=== PATIENT | female | born 1985 | race Asian ===

== ENCOUNTER 2022-07-24 16:43 | Emergency (ER) | payer OTHER, SELFPAY ==
[2022-07-24 16:55] VITALS: BP 110/71; PULSE 96; RESP 16; TEMP 36.6; O2SAT 100
--- NOTE | 2022-07-24 16:57 | ED.URI ---
HPI - URI/Sore Throat General Chief Complaint: Upper Respiratory Infection Stated Complaint: SORE THROAT Time Seen by Provider: 07/24/22 16:57 Source: patient Mode of arrival: ambulatory Limitations: no limitations History of Present Illness HPI Narrative: 36-year-old female presents with complaint of scratchy throat, headache, upset stomach for the past 3 days. Patient reports exposure to strep throat by her son and states now her throat is hurting. Afebrile. Patient also concerned that she may be . States she is 1 week late on her period. States there was a faint positive lying on home test last night. States she is going to taking other home test in a couple days, does not want a test at [facility]. All systems reviewed and negative except as noted above. Related Data Allergies Allergy/AdvReac Type Severity Reaction Status Date / Time No Known Allergies Allergy Verified 07/24/22 16:50 Review of Systems Review of Systems: CONSTITUTIONAL: Denies fever, chills, or sweats. EYES: Denies visual changes, redness, or discharge. ENT: Denies rhinorrhea, congestion. Reports sore throat. Denies otalgia. CARDIOVASCULAR: Denies chest pain, palpitations, or edema. RESPIRATORY: Denies cough or dyspnea. GASTROINTESTINAL: Denies abdominal pain. Reports nausea. Denies vomiting, or diarrhea. GENITOURINARY: Denies dysuria or hematuria. SKIN: Denies rash or itching. MUSCULOSKELETAL: Denies back pain, joint pain, or myalgia. NEUROLOGIC: Denies headache, numbness, or weakness. PSYCHIATRIC: Denies anxiety or depression. All other systems reviewed are negative, except as documented in HPI. PMFSH Comments At time of signature, agree with nursing past medical, surgical, social and family history. There is no relevant family history pertinent to the presenting complaint. Exam Narrative: GENERAL: This is a well-nourished, well-developed patient, in no apparent distress. HEAD: normocephalic, atraumatic. EYES: PERRL. Sclera clear/white. Vision is grossly intact. EARS: External ears normal, auditory canals clear and without drainage, TMs normal without perforation. Hearing grossly intact. NOSE: External nose normal with no obvious nasal discharge, nares without redness, no rhinorrhea. THROAT: Mucous membranes moist, mild erythema to posterior pharynx. NECK: Neck supple, non-tender without lymphadenopathy, masses or thyromegaly. CARDIOVASCULAR: Regular rate and rhythm without murmurs, gallops, or rubs. RESPIRATORY: Clear to auscultation. Breath sounds equal bilaterally. No wheezes, rales, or rhonchi. GASTROINTESTINAL: Abdomen soft, non-tender, nondistended. Bowel sounds are active. No hepato-splenomegaly, or palpable masses. No guarding. SKIN: warm, Dry, intact with no suspicious lesions or rash, good texture and turgor. NEURO: awake, alert, and oriented to person, place and time. There were no obvious focal neurologic abnormalities. EXTREMITIES: No joint tenderness, effusion, or edema noted. Course Course Level of Care: Express Care Visit Vital Signs Vital signs: Vital Signs Temperature 36.6 C 07/24/22 16:55 Pulse Rate 96 07/24/22 16:55 Respiratory Rate 16 07/24/22 16:55 Blood Pressure 110/71 07/24/22 16:55 Pulse Oximetry 100 07/24/22 16:55 Temperature 36.6 C 07/24/22 16:55 Pulse Rate 96 07/24/22 16:55 Respiratory Rate 16 07/24/22 16:55 Blood Pressure 110/71 07/24/22 16:55 Pulse Oximetry 100 07/24/22 16:55 Reviewed MDM - URI/Sore Throat MDM Narrative Medical decision making narrative: Patient is aware of diagnosis, understands and agrees to treatment plan. Anticipatory guidance given. Patient agrees to follow-up as directed and is aware of reasons to seek care at the emergency department. Portions of this record may have been created with voice recognition software Negative rapid strep test. Will treat patient for strep throat due
== END 2022-07-24 17:17 | disposition home or self-care (01) ==
PROVIDERS: Emergency Provider Nurse Practitioner Family
DX: J02.9 Acute pharyngitis, unspecified (principal); Z20.818 Contact with and (suspected) exposure to other bacterial communicable diseases
CPT/HCPCS: 87081; 87880; 99213; G0463

== ENCOUNTER 2022-09-12 18:15 | Emergency (ER) | payer OTHER, SELFPAY ==
[2022-09-12 18:30] VITALS: BP 115/73; PULSE 94; RESP 16; TEMP 36.7; O2SAT 100
--- NOTE | 2022-09-12 18:31 | ED.URI ---
HPI - URI/Sore Throat General Chief Complaint: Upper Respiratory Infection Stated Complaint: SORE THROAT/COUGH Time Seen by Provider: 09/12/22 18:31 Source: patient, RN notes reviewed and old records reviewed Mode of arrival: ambulatory Limitations: no limitations History of Present Illness HPI Narrative: 37 year old female who presents to [facility] care with complaints of sore throat and cough for the past 3 days. Patient is also about 10-11 weeks . Patient reports that she has not had any fevers, chills, or sweats. Patient reports that she has not been sleeping well due to cough which is frequent. Patient states that she also has a lot of acid reflux which she thinks could of also made her throat sore. Patient has not taken any OTC medications for her symptoms. Patient works in a rehab facility setting. MD elicited complaint: cough and sore throat Onset (ago): day(s) (3) Pain scale (0-10): 6 Description of mucous: clear Able to tolerate fluids by mouth: Yes Exacerbating factors: other (cough) Treatments prior to arrival: other (salt water gargles) Related Data Home Medications Medication Instructions Recorded Confirmed vit#24-iron amino acid 1 tablet PO DAILY 09/12/22 09/12/22 chelat-folic acid 30 mg-975 mcg tablet Allergies Allergy/AdvReac Type Severity Reaction Status Date / Time No Known Allergies Allergy Verified 09/12/22 18:27 Review of Systems Review of Systems: CONSTITUTIONAL: Denies malaise, chills, sweats, or fever. EYES: Denies visual changes, redness, or discharge. ENT: Reports rhinorrhea, congestion,no sinus pain, no otalgia, positive for sore throat. CARDIOVASCULAR: Denies chest pain, palpitations, or edema. RESPIRATORY: Reports cough.? Denies dyspnea. GASTROINTESTINAL: Denies abdominal pain, nausea, vomiting, diarrhea SKIN: Denies rash or itching. MUSCULOSKELETAL: Denies myalgia. NEUROLOGIC: Denies headache. All systems reviewed & are unremarkable except as noted in HPI and below PMFSH Social History Social History (Updated 09/12/22 @ 19:03 by Sonya Arrington NP) Smoking status: Never smoker Alcohol intake: unknown Substance use: never Substance use type: does not use Living arrangements: with family Gender identity (if verbalized by the patient): Female Comments At time of signature, agree with nursing past medical, surgical, social and family history. There is no relevant family history pertinent to the presenting complaint Exam Narrative: GENERAL: Well-appearing, well-nourished, and in no acute distress. HEAD: Normocephalic EYES: PERRLA, conjunctivae clear ENT: Nares clear, turbinates edematous and erythematous, clear discharge. Mucous membranes moist. TM pearly silverio with dull light reflex bilaterally; no tragal tenderness. Oropharynx erythematous without lesions. Tonsils not enlarged and without exudate, no drooling, no hoarseness, no trismus, uvula midline. NECK: Supple. No lymphadenopathy CHEST: Clear to auscultation, breath sounds equal. No wheezing, rhonchi, rales, or stridor. No respiratory distress, speaks in full sentences.dry cough, SAO2 100% on room air HEART: Regular rate and rhythm. No murmur heard. SKIN: Warm, dry, no rash. NEURO: Alert and oriented x3. PSYCH: Normal mood and affect Course Course Emergency Course: Patient is aware of diagnosis, understands and agrees to treatment plan.? Anticipatory guidance given.? Patient agrees to follow-up as directed and is aware of reasons to seek care at the emergency department. Portions of this record may have been created with voice recognition software Level of Care: Express Care Visit Vital Signs Vital signs: Vital Signs Temperature 36.7 C 09/12/22 18:30 Pulse Rate 94 09/12/22 18:30 Respiratory Rate 16 09/12/22 18:30 Blood Pressure 115/73 09/12/22 18:30 Pulse Oximetry 100 09/12/22 18:30 Temperature 36.7 C 09/12/22 18:3
== END 2022-09-12 19:12 | disposition home or self-care (01) ==
PROVIDERS: Emergency Provider Registered Nurse
DX: O99.511 Diseases of the respiratory system complicating pregnancy, first trimester (principal); Z3A.00 Weeks of gestation of pregnancy not specified; J06.9 Acute upper respiratory infection, unspecified; J02.9 Acute pharyngitis, unspecified; Z20.822 Contact with and (suspected) exposure to COVID-19
CPT/HCPCS: 87081; 87426; 87880; 99213; C9803; G0463

== ENCOUNTER 2022-09-25 09:56 | Emergency (ER) | payer OTHER, SELFPAY ==
--- NOTE | ~2022-09-25 | US_ITS ---
Pelvic ultrasound. Clinical History: Second trimester , miscarriage Technique: Realtime transabdominal and transvaginal scanning of the pelvis was performed. Color flow Doppler and Doppler spectral analysis were performed. Findings: The uterus is anteverted, and contains an intrauterine gestation.. [place]-rump length of 7.5 cm corresponds to an estimated gestational age of 13 weeks 4 days. heart rate is 163 bpm. Cerv ix closed, measuring 3.7 m in length. Placenta located towards the fundus. Possible very small subchr onic hemorrhage. Neither ovary seen. No adnexal mass seen. There is no evidence of free fluid in the cul de sac. Impression: Live intrauterine gestation with estimated gestational age of 13 weeks 4 days. heart rate is 16 3 bpm. Possible very small subchorionic hemorrhage. Reviewed, dictated and finalized at [facility]. Impression: Live intrauterine gestation with estimated gestational age of 13 weeks 4 days. heart rate is 163 bpm. Possible very small subchorionic hemorrhage.
[2022-09-25 10:02] VITALS: BP 118/68; PULSE 87; RESP 20; TEMP 36.6; O2SAT 100
--- NOTE | 2022-09-25 10:10 | ED.FEMALEGU ---
HPI - Female Genitourinary General Chief complaint: Vaginal Bleeding Stated complaint: 13 weeks , bleeding Time Seen by Provider: 09/25/22 10:03 Source: patient Mode of arrival: ambulatory Limitations: no limitations History of Present Illness HPI Narrative: Patient is 3, para 1, abortions 0, currently 13 weeks developed vaginal bleed with blood clots last night, denies any sexual activity at that time. Patient reports hitting the right side of her abdomen on the edge of a table 1 week ago. Did not go to hospital at that time. She denies any fever, chills, nausea, vomiting, abdominal pain. Patient is healthy otherwise, drove herself to the emergency room. Related Data Home Medications Medication Instructions Recorded Confirmed vit#24-iron amino acid 1 tablet PO DAILY 09/12/22 09/12/22 chelat-folic acid 30 mg-975 mcg tablet Allergies Allergy/AdvReac Type Severity Reaction Status Date / Time No Known Allergies Allergy Verified 09/25/22 10:05 Review of Systems Review of Systems: All systems reviewed & are unremarkable except as noted in HPI and below PMFSH Social History Social History Smoking status: Never smoker Alcohol intake: unknown Substance use: never Substance use type: does not use Living arrangements: with family Gender identity (if verbalized by the patient): Female Exam Narrative: General appearance: Well-developed, well-nourished Skin: Normal color Head: Normocephalic, nontraumatic Eyes: Clear conjunctiva ENT: Oropharynx normal, ears normal, nose normal Neck: Supple, nontender Chest and respiratory: Airway patent, no respiratory distress, no accessory muscle use Heart: Regular rate/rhythm Abdomen: Soft, nontender, no organomegaly, quiet bowel sounds Vascular: Normal peripheral pulses, normal capillary refill. Musculoskeletal: Normal range of motion, nontender back Neurologic: Alert and oriented ?3, [employer] is normal as tested, no gross motor deficit : Speculum Exam - Vagina: normal appearance of the vagina Speculum Exam - Cervix: Cervical os closed Bimanual Exam- Adnexa, other: No adnexal tenderness Other: Risks of vaginal bleed, at the cervix, currently no active bleeding Course Reevaluation(s) Reevaluation #1: No active bleeding, feeling okay since arrival to the emergency room. Date: 09/25/22 Time: 13:26 Vital Signs Vital signs: Vital Signs Temperature 36.6 C 09/25/22 10:02 Pulse Rate 87 09/25/22 10:02 Respiratory Rate 20 09/25/22 10:02 Blood Pressure 118/68 09/25/22 10:02 Pulse Oximetry 100 09/25/22 10:02 Oxygen Delivery Room Air 09/25/22 10:02 Temperature 36.6 C 09/25/22 10:02 Pulse Rate 87 09/25/22 10:02 Respiratory Rate 20 09/25/22 10:02 Blood Pressure 118/68 09/25/22 10:02 Pulse Oximetry 100 09/25/22 10:02 Oxygen Delivery Room Air 09/25/22 10:02 MDM - Female Genitourinary MDM Narrative Medical decision making narrative: Patient is 13 weeks , presents with vaginal bleed started last night, patient reported accidentally bumped the edge of a table by the right side of her abdomen 1 week ago. Denied any recent sexual activity. Physical examination showed trace of blood around the cervix, blood work-up today showed leukocytosis consistent with , beta-hCG one 02113.00, urinalysis showed infection, patient on Keflex currently for UTI, pelvic ultrasound showed live intrauterine gestation 13 weeks and 4 days heart rate is 163. Patient is comfortable, Dr. Janet Salazar was notified. the pt was discharged to home.the pt,s con
[2022-09-25 10:23] LABS: Basophils Percent Auto 0.2 % (0.2-1.2); Eosinophils Absolute Auto 0.2 K/mm3 (0-0.3); Eosinophils Percent Auto 1.1 % (0-4.4); Hematocrit 35.8 % (37.0-47.0); Hemoglobin 11.8 g/dL (12.0-15.0); Immature Granulocyte Absolute 0.06 K/mm3 (0.00-0.031); Immature Granulocyte Percent A 0.4 % (0-0.5); Lymphocytes Absolute Auto 2.72 K/mm3 (0.9-3.2); Lymphocytes Percent Auto 18.2 % (18.3-44.2); Mean Corpuscular Hemoglobin 27.7 pg (26-34); Mean Platelet Volume 8.6 fl (7.4-10.4); Monocytes Absolute Auto 0.9 K/mm3 (0.1-0.6); Monocytes Percent Auto 5.9 % (2.6-8.5); Neutrophils Absolute Auto 11.1 K/mm3 (1.3-6.7); Neutrophils Percent Auto 74.2 % (45.5-73.1); Platelet Count Result 390 k/mm3 (150-375); Red Blood Count 4.26 M/mm3 (4.2-5.4)
[2022-09-25] MEDS: SODIUM CHLORIDE 0.9% IV 1,000 ML 999 ML IV CONT (10:34)
[2022-09-25 11:21] LABS: Appearance Urine Clear (Clear); Bacteria Urine None Seen /hpf; Bilirubin Urine Negative (Negative); Blood Urine 2+ (Negative); Color Urine Yellow (Yellow); Glucose Urine UA Negative (Negative); Ketones Urine Negative (Negative); Leukocyte Esterase Ur 3+ LEU/UL (Negative); Nitrate Urine Negative (Negative); Non Pathogenic Casts 0-2; Protein Urine Negative (Negative); RBC Urine 0-2 /hpf (0-2); Specific Grav Ur 1.006 (1.001-1.035); Squamous Epithelial Cell Urine None seen /hpf (Few); Urobilinogen Urine 0.2 mg/dL (<2.0); WBC Urine 21-50 /hpf; pH Urine 6.5 (5.0-9.0)
[2022-09-25 11:23] LABS: Add Urine Microscopic? YES
--- NOTE | 2022-09-25 11:31 | PC.NURSE ---
report received from Millie SULLIVAN
== END 2022-09-25 15:03 | disposition home or self-care (01) ==
PROVIDERS: Emergency Provider Emergency Medicine
DX: O20.0 Threatened abortion (principal); O23.41 Unspecified infection of urinary tract in pregnancy, first trimester; N39.0 Urinary tract infection, site not specified; Z3A.13 13 weeks gestation of pregnancy
CPT/HCPCS: 36415; 76801; 81001; 81025; 84702; 85025; 85461; 86850; 86900; 86901; 87086; 87147; 87181; 87186; 96360; 99284; J7030

== ENCOUNTER 2023-03-04 08:20 | Inpatient (IN) | payer BC, SELFPAY ==
[2023-03-04] VITALS (48 sets, daily range): BP systolic 90–123; BP diastolic 45–98; PULSE 81–115; RESP 12–23; TEMP 36.3–37.1; O2SAT 98–100; BMI 31.1
[2023-03-04 08:52] LABS: Basophils Percent Auto 0.1 % (0.2-1.2); Eosinophils Absolute Auto 0.1 K/mm3 (0-0.3); Eosinophils Percent Auto 0.8 % (0-4.4); Hematocrit 33.2 % (37.0-47.0); Hemoglobin 10.9 g/dL (12.0-15.0); Immature Granulocyte Absolute 0.15 K/mm3 (0.00-0.031); Immature Granulocyte Percent A 1.3 % (0-0.5); Lymphocytes Absolute Auto 1.51 K/mm3 (0.9-3.2); Lymphocytes Percent Auto 12.8 % (18.3-44.2); Mean Corpuscular HGB Conc 32.8 g/dl (32-36); Mean Corpuscular Hemoglobin 28.2 pg (26-34); Mean Corpuscular Volume 85.8 fl (80-100); Mean Platelet Volume 8.7 fl (7.4-10.4); Monocytes Absolute Auto 0.6 K/mm3 (0.1-0.6); Monocytes Percent Auto 5.2 % (2.6-8.5); Neutrophils Absolute Auto 9.4 K/mm3 (1.3-6.7); Neutrophils Percent Auto 79.8 % (45.5-73.1); Platelet Count Result 277 k/mm3 (150-375); Red Blood Count 3.87 M/mm3 (4.2-5.4); Red Cell Distribution Width 13.4 % (11.5-14.5); White Blood Count 11.8 K/mm3 (4.5-10.0)
--- NOTE | 2023-03-04 09:05 | LDADM ---
This patient, Trevon Porter, was admitted to Labor/Delivery/Recovery 119 on 03/04/23 at 08:20. Plans for labor, pain management and were discussed with patient. Patient/family oriented to hospital policies and general routines including ID bracelet, bed and alarms, visiting hours, pain management, procedures, bathroom and other care routines, personal items, smoking policy, room service/diet and guest tray routines, security routines, and visiting hours. Patient/Family are encouraged to report perceived risks to care and to ask questions if they do not understand what they are told or what they should do. See OBIX for further documentation.
[2023-03-04] MEDS: LACTATED RINGERS 1,000 ML 125 ML IV CONT ×2 (09:14→10:29)
--- NOTE | 2023-03-04 09:38 | PM.IMHP ---
H&P: HPI History of Present Illness Date/Time: 03/04/23 09:38 Chief Complaint: Ruptured membranes Narrative: 37-year-old 2 para 1 with previous section and last menstrual period 06/20/2022 given EDC of 04/03/2023 presenting at 35 and half weeks gestation with spontaneous rupture membranes. Her has been uncomplicated she had abnormal 1hour diabetic test with 4 4 normal GTT she is positive for ruptured membranes today [facility] Social History Social History Smoking status: Never smoker Alcohol intake: unknown Substance use: never Substance use type: does not use Lack of Transportation: No Lack of Food: Never True Current Housing: I Have Housing Concerned About Future Housing: No Difficulty Paying Gas/Electric Bills: No Difficulty Paying for Meds: No Currently Unemployed: No Education: Master's Degree or Higher Difficulty w/ Childcare or Family Care: No Living arrangements: with family Gender identity (if verbalized by the patient): Female Meds Home Medications and Allergies Home Medications Medication Instructions Recorded Confirmed Type vit#24-iron amino acid 1 tablet PO DAILY 09/12/22 03/04/23 History chelat-folic acid 30 mg-975 mcg tablet Allergies Allergy/AdvReac Type Severity Reaction Status Date / Time No Known Allergies Allergy Verified 09/25/22 10:05 Vital Signs Vital Signs - 24 hr 03/04/23 08:16 03/04/23 08:31 03/04/23 09:01 Pulse Rate 103 H 99 98 Blood Pressure 111/70 104/62 106/65 Oxygen Delivery 03/04/23 09:16 03/04/23 09:31 03/04/23 09:02 Pulse Rate 103 H 97 Blood Pressure 114/72 90/49 L Oxygen Delivery Room Air Exam Const: General: cooperative, healthy appearing and comfortable Nutritional Appearance: average body habitus Orientation/consciousness: oriented to person, oriented to place and oriented to time HENMT: Head: normal to inspection Resp: Effort & Inspection: normal respiratory effort Cardio: Rate: regular rate Rhythm: regular rhythm Heart sounds: S1 normal heart sound present and S2 normal heart sound present GI: Inspection: normal to inspection ( gravid soft uterus) : External Female Exam: normal external appearance Speculum Exam - Vagina: normal appearance of the vagina Speculum Exam - Cervix: normal appearance of the cervix and Other cervical findings present ( positive rupture of membranes. FHTs reassuring with no contractions) H&P: Results Labs Labs: Short CBC 03/04/23 Range/Units 08:37 WBC 11.8 H (4.5-10.0) K/mm3 Hgb 10.9 L (12.0-15.0) g/dL Hct 33.2 L (37.0-47.0) % Plt Count 277 (150-375) k/mm3 Assessment and Plan Assessment and plan (1) Premature rupture of membranes (PROM) at term with onset of labor after 24 hours, antepartum: Code(s): O42.12 - Full-term premature rupture of membranes, onset of labor more than 24 hours following rupture Status: Acute (2) Previous section: Code(s): Z98.891 - History of uterine scar from previous surgery Status: Acute Plan proceed with repeat section
--- NOTE | 2023-03-04 09:41 | WPDHPUPDATE1 ---
History and Physical Update Update Date/Time: 03/04/23 09:41 History and Physical has been reviewed, including an updated exam of the patient. There are NO changes in the patient's condition. Risks, benefits, and alternatives have been discussed and questions answered. Patient agrees to proceed with procedure.
--- NOTE | 2023-03-04 10:39 | WPDANESEPPF ---
Anes - Initial Pre Proc Eval Procedure: Operation Date: 03/04/23 11:00 Proposed Procedures p Section - Kendall Salazar MD Date/Time: 03/04/23 10:39 Surgeon: Kendall Salazar MD Pre Op Diagnosis: leaking Patient Data Age: 37 Gender: F Height: 1.5 m Weight: 70 kg Last Vital Signs Pulse 93 03/04/23 10:01 BP 94/51 L 03/04/23 10:01 O2 Del Method Room Air 03/04/23 09:02 Allergies Allergy/AdvReac Type Severity Reaction Status Date / Time No Known Allergies Allergy Verified 09/25/22 10:05 Home Medications Medication Instructions Recorded Confirmed Type vit#24-iron amino acid 1 tablet PO DAILY 09/12/22 03/04/23 History chelat-folic acid 30 mg-975 mcg tablet hydrocodone 5 mg-acetaminophen 325 1 tablet PO Q4H PRN pain #30 tabs 03/04/23 Rx mg tablet Laboratory Tests 03/04/23 08:37 WBC 11.8 H K/mm3 (4.5-10.0) RBC 3.87 L M/mm3 (4.2-5.4) Hgb 10.9 L g/dL (12.0-15.0) Hct 33.2 L % (37.0-47.0) MCV 85.8 fl (80-100) MCH 28.2 pg (26-34) MCHC 32.8 g/dl (32-36) RDW 13.4 % (11.5-14.5) Plt Count 277 k/mm3 (150-375) MPV 8.7 fl (7.4-10.4) Immature Gran % (Auto) 1.3 H % (0-0.5) Neut % (Auto) 79.8 H % (45.5-73.1) Lymph % (Auto) 12.8 L % (18.3-44.2) [place] % (Auto) 5.2 % (2.6-8.5) Eos % (Auto) 0.8 % (0-4.4) Baso % (Auto) 0.1 L % (0.2-1.2) Lymph # (Auto) 1.51 K/mm3 (0.9-3.2) [place] # (Auto) 0.6 K/mm3 (0.1-0.6) Eos # (Auto) 0.1 K/mm3 (0-0.3) Baso # (Auto) 0.0 K/mm3 (0.0-0.1) Abs Immat Gran (auto) 0.15 H K/mm3 (0.00-0.031) Absolute Neuts (auto) 9.4 H K/mm3 (1.3-6.7) Absolute Nucleated RBC 0.0 K/mm3 (0.0-0.012) Nucleated RBC % 0.0 % (0.0-0.2) RPR Pending Blood Type B Positive Antibody Screen Negative Patient hx anesthesia problems: none Family hx anesthesia problems: none Results Review: All pre-operative results and documents have been reviewed as part of the pre-operative evaluation. [facility] Social History Social History Smoking status: Never smoker Alcohol intake: unknown Substance use: never Substance use type: does not use Lack of Transportation: No Lack of Food: Never True Current Housing: I Have Housing Concerned About Future Housing: No Difficulty Paying Gas/Electric Bills: No Difficulty Paying for Meds: No Currently Unemployed: No Education: Master's Degree or Higher Difficulty w/ Childcare or Family Care: No Living arrangements: with family Gender identity (if verbalized by the patient): Female Anes - Eval Final PreProcedure Day of Procedure 03/04/23 10:39 Patient weight: overweight Heart: regular rate and rhythm Lungs: clear to auscultation Airway: Mallampati scale class 1 Neurological: alert and oriented Last oral intake: 4 hours ASA classification: II Emergent: no Anesthetic plan: proceed Anesthesia type and monitoring: regional spinal and standard monitoring Results Review: All pre-operative results and documents have been reviewed as part of the pre-operative evaluation. Informed Consent: The patient's anesthetic plan and its attendant risks and benefits were discussed with the patient/family/POA. Questions were solicited and answers provided to the satisfaction of the patient/family/POA.
[2023-03-04] MEDS: ceFAZolin 2 GM/D5W 50 ML 2 GM/50 ML BAG IVPB (11:06)
--- NOTE | 2023-03-04 11:53 | W.PM.OBCSD ---
OB - Delivery Note Procedure Delivery date: 03/04/23 Pre-op diagnosis: Premature Rupture of Membranes and Previous Delivery Post-op Diagnosis: Same Induction method: None Delivery monitor: External FHT and External Uterine Prior to decision for section, ACOG/SM labor guidelines were considered and discussed with the patient and staff. Decision made to proceed with the section.: Yes Procedure Performed: Repeat Surgeon: Kendall Salazar MD Anesthesia type: Spinal Description of Procedure/Findings: Admitted with spontaneous rupture membranes at term. She had previous section. Proceed informed consent was taken the back and prepped and draped in the normal sterile fashion placed in the supine position. Under excellent spinal anesthetic the abdomen was entered in Pfannenstiel fashion progressive layers of fascia. Fascia incised in midline carried upward outward fashion bilaterally. Underlying muscles sharply dissected. Parietal peritoneum ovary could collapse and by sharp dissection carried superiorly and inferiorly dome of the bladder. Bladder flap formed and a bladder blade low-transverse incision made head delivered the JYOTSNA position. Anterior posterior shoulder delivered spontaneously. Cord clamped x2 and cut and passed off the table than excellent cry. Placenta delivered diagnoses and uterus delivered and wrapped in a moist towel after assuring no membranes or debris remained in the uterus, the uterus was closed with continuous running locking 0 Vicryl. This followed by 2nd imbricating running locking 0 Vicryl from lateral edge to lateral edge. Hemostasis was assured. Ovaries and tubes appeared within normal limits and the uterus returned to the abdomen. Laps removed and accounted for and the hysterotomy incision inspected 1 last time. It was noted be hemostatic and the fascia closed with continuous running 0 Vicryl from lateral edge to lateral edge. Irrigation subcutaneous layer the skin closed with 4 Monocryl and glue blood loss was quantitated at 710s cc. All sponge, needle, instrument counts were correct. There were no immediate complications noted Specimen: No Estimated Blood Loss: 710 Drains: No Packing: No Pathology: None sent Complications: No immediate complications Condition: Stable Disposition: PACU Baby Date of : 03/04/23 Time of : 11:30 Weeks of gestation at delivery: 35 gender: Male Weight (pounds): 6 Weight (ounces): 1 presentation: vertex position: Left Occiput Anterior Placenta delivery description: Manual Removal Cord Vessel Description: 3 Vessels and Nuchal Cord score one minute: 9 score five minutes: 9
--- NOTE | 2023-03-04 11:58 | PM.DS ---
DS: Admitting Diagnosis Discharge Date 03/08/2023 Admitting Diagnosis 35 week rupture membrane with previous section DS: Discharge Diagnosis Discharge Diagnosis (1) Previous section: Code(s): Z98.891 - History of uterine scar from previous surgery Status: Acute (2) Premature rupture of membranes (PROM) at term with onset of labor after 24 hours, antepartum: Code(s): O42.12 - Full-term premature rupture of membranes, onset of labor more than 24 hours following rupture Status: Acute DS: Summary Hospital Course Reason for hospitalization: patient was admitted with spontaneous rupture membranes at 35 and half weeks gestation. She underwent low-transverse section. Hospital Course: Her hospital course. She remained afebrile. She was up, eating regular diet, ambulating, voiding without difficulty, general without complaints. Time Spent with Patient Time attestation: Total time spent providing and/or coordinating discharge services: Exam Const: General: cooperative, healthy appearing and comfortable Nutritional Appearance: average body habitus Orientation/consciousness: oriented to person, oriented to place and oriented to time Resp: Effort & Inspection: normal respiratory effort Cardio: Rate: regular rate Rhythm: regular rhythm Heart sounds: S1 normal heart sound present and S2 normal heart sound present GI: Inspection: normal to inspection and incision ( Clean dry and intact) DS: Data Data Completed and Pending Labs on day of discharge: Labs from last 24 hours 03/04/23 08:37 WBC 11.8 H RBC 3.87 L Hgb 10.9 L Hct 33.2 L MCV 85.8 MCH 28.2 MCHC 32.8 RDW 13.4 Plt Count 277 MPV 8.7 Immature Gran % (Auto) 1.3 H Neut % (Auto) 79.8 H Lymph % (Auto) 12.8 L [place] % (Auto) 5.2 Eos % (Auto) 0.8 Baso % (Auto) 0.1 L Lymph # (Auto) 1.51 [place] # (Auto) 0.6 Eos # (Auto) 0.1 Baso # (Auto) 0.0 Abs Immat Gran (auto) 0.15 H Absolute Neuts (auto) 9.4 H Absolute Nucleated RBC 0.0 Nucleated RBC % 0.0 RPR Pending Blood Type B Positive Antibody Screen Negative Discharge Plan Discharge Attending physician on discharge: Kendall Urias Discharging Clinician: Kendall Urias Patient Disposition: Home, Self-Care Activity: may shower, may drive after 2 weeks and pelvic rest Diet: regular Wound Care Instructions: incision open to air Discharge Instructions: Call or return if temperature above 100.4? F, increased abdominal pain, increased vaginal bleeding or any new problems. Stand Alone Forms: General Discharge Information Follow-up/Referrals: Kendall Urias MD [Physician] - 4 Weeks Discharge Medications: New hydrocodone-acetaminophen 5-325 mg tablet 1 tablet PO Q4H PRN (Reason: pain) Qty: 30 0RF ibuprofen 600 mg tablet 600 mg PO Q6H PRN (Reason: cramps) Qty: 30 0RF ferrous sulfate 325 mg (65 mg iron) tablet 325 mg PO DAILY Qty: 30 0RF Continued Complete 30-975 mg-mcg Tablet 1 tablet PO DAILY Date of admission: 03/04/23 08:20 Primary Care Provider: PHYSICIAN NOT ON STAFF,NONSTAFF Admitting Provider: Kendall Urias Attending physician on admission: Kendall Urias Condition: Stable
[2023-03-04] MEDS: OXYTOCIN 30 UNITS/NS 500 ML 30 UNITS/500 ML BAG 125 UNITS IV CONT (12:11)
[2023-03-04] MEDS: fentaNYL CITRATE INJ (*CRX) 100 MCG/2 ML VIAL 25 MCG IV PUSH ×2 (12:23→12:40)
[2023-03-04 14:09] LABS: Rapid Plasma Reagin Non-Reactive (NonReactive)
--- NOTE | 2023-03-04 14:15 | OBPPTRN ---
Patient transferred to post room # [id number] via stretcher accompanied by fob and infant. PT moved to bed via maxi air without difficulty. PT and fob both recipients of instructions and no barriers to learning identified at this time. PT introductions made and plan fo care discussed per post op c section, pain management, breast feeding, daily care activities. PT received such instructions vis one to one discussion, mom baby care guide and demonstrations this shift. Oriented to unit, room, information board, rooming in, admission packet and security measures. Patient verbalizes understanding.
[2023-03-04] MEDS: KETOROLAC 30 MG/ML VIAL (*BKC) IV PUSH (14:57)
[2023-03-04] MEDS: POLYSACCHARIDE IRON COMPLEX 150 MG CAPSULE PO (16:30)
[2023-03-04] MEDS: DEXTROSE 5%/0.45% SOD CHL 1,000 ML 125 ML IV CONT (16:30)
[2023-03-04] MEDS: SIMETHICONE 80 MG TAB.CHEW PO ×2 (16:30→17:38)
[2023-03-04] MEDS: DOCUSATE SODIUM 100 MG CAPSULE PO (16:31)
[2023-03-04] MEDS: HYDROcodone/acetaminophen (*CRX) 5-325 MG TABLET 1 TAB PO ×2 (17:38→22:24)
[2023-03-04] MEDS: IBUPROFEN 600 MG TABLET PO (22:24)
[2023-03-05] MEDS: HYDROcodone/acetaminophen (*CRX) 5-325 MG TABLET 1 TAB PO ×6 (01:55→22:35)
[2023-03-05 05:40] VITALS: BP 111/76; PULSE 99; RESP 16; TEMP 36.6
[2023-03-05] MEDS: IBUPROFEN 600 MG TABLET PO ×3 (05:52→17:36)
[2023-03-05 05:58] LABS: Basophils Percent Auto 0.2 % (0.2-1.2); Eosinophils Absolute Auto 0.1 K/mm3 (0-0.3); Eosinophils Percent Auto 0.4 % (0-4.4); Hematocrit 26.8 % (37.0-47.0); Hemoglobin 8.7 g/dL (12.0-15.0); Immature Granulocyte Absolute 0.18 K/mm3 (0.00-0.031); Immature Granulocyte Percent A 0.9 % (0-0.5); Lymphocytes Absolute Auto 2.36 K/mm3 (0.9-3.2); Lymphocytes Percent Auto 12.3 % (18.3-44.2); Mean Corpuscular HGB Conc 32.5 g/dl (32-36); Mean Corpuscular Hemoglobin 28.6 pg (26-34); Mean Corpuscular Volume 88.2 fl (80-100); Mean Platelet Volume 9.1 fl (7.4-10.4); Monocytes Percent Auto 5.3 % (2.6-8.5); Neutrophils Absolute Auto 15.6 K/mm3 (1.3-6.7); Neutrophils Percent Auto 80.9 % (45.5-73.1); Platelet Count Result 206 k/mm3 (150-375); Red Blood Count 3.04 M/mm3 (4.2-5.4); White Blood Count 19.2 K/mm3 (4.5-10.0)
--- NOTE | 2023-03-05 06:32 | PM.OBPNVD ---
OB - PN: Subj Subjective Date/time seen: 03/05/23 06:32 Patient comments: no complaints and pain well controlled baby status: doing well OB - PN: Obj Data Labs 03/05/23 05:48 Labs: Laboratory Results - last 24 hr 03/04/23 03/05/23 08:37 05:48 WBC 11.8 H 19.2 H RBC 3.87 L 3.04 L Hgb 10.9 L 8.7 L Hct 33.2 L 26.8 L MCV 85.8 88.2 MCH 28.2 28.6 MCHC 32.8 32.5 RDW 13.4 13.0 Plt Count 277 206 MPV 8.7 9.1 Immature Gran % (Auto) 1.3 H 0.9 H Neut % (Auto) 79.8 H 80.9 H Lymph % (Auto) 12.8 L 12.3 L [place]key % (Auto) 5.2 5.3 Eos % (Auto) 0.8 0.4 Baso % (Auto) 0.1 L 0.2 Lymph # (Auto) 1.51 2.36 Sharkey # (Auto) 0.6 1.0 H Eos # (Auto) 0.1 0.1 Baso # (Auto) 0.0 0.0 Abs Immat Gran (auto) 0.15 H 0.18 H Absolute Neuts (auto) 9.4 H 15.6 H Absolute Nucleated RBC 0.0 0.0 Nucleated RBC % 0.0 0.0 RPR Non-reactive Blood Type B Positive Antibody Screen Negative OB - PN A/P Plan day: 1 Plan: routine care Time Spent With Patient Time: Total time spent is greater than 50% in coordination of care (as documented) at patient's floor/unit and/or counseling patient: Time with patient: less than 15 minutes Exam Const: General: cooperative, healthy appearing and comfortable Nutritional Appearance: average body habitus Orientation/consciousness: oriented to person, oriented to place and oriented to time HENMT: Head: normal to inspection Resp: Effort & Inspection: normal respiratory effort Cardio: Rate: regular rate Rhythm: regular rhythm Heart sounds: S1 normal heart sound present and S2 normal heart sound present GI: Inspection: normal to inspection and incision ( clean dry and intact)
--- NOTE | 2023-03-05 08:15 | PC.NURSE ---
Breast pump provided due to ineffective feedings. Instructions given on cleaning, care, usage, that there should be no pain, pumping schedule for milk production, collection, and storage of human milk. Patient was assessed for correct placement, flange size, to pump for comfort and nipple stretching/stimulation for adequate milk production every 3 hours (8 times in 24 hours) 1-2 times at night.
[2023-03-05 09:13] VITALS: BP 101/49; PULSE 99; RESP 18; TEMP 36.6; O2SAT 99
[2023-03-05] MEDS: POLYSACCHARIDE IRON COMPLEX 150 MG CAPSULE PO ×2 (09:15→16:53)
[2023-03-05] MEDS: MULTIVIT/MIN/PREN/FOL AC/IRON TABLET 1 TAB PO (09:16)
[2023-03-05] MEDS: DOCUSATE SODIUM 100 MG CAPSULE PO ×2 (09:16→16:53)
--- NOTE | 2023-03-05 12:58 | WPDANLDPN2 ---
Anes-Prog Note L&D Date/Time: 03/05/23 12:58 Comfortable throughout: section Neuraxial method: spinal Epidural/Spinal procedure site: clean & non-tender Neuro status: Neuro function grossly intact. Cardiovascular status: normal Respiratory status: normal Airway patency: baseline Mental status: baseline Post-Op hydration status: normal Vital Signs: Last Vital Signs Temp 97.8 F 03/05/23 09:13 Pulse 99 03/05/23 09:13 Resp 18 03/05/23 09:13 BP 101/49 L 03/05/23 09:13 Pulse Ox 99 03/05/23 09:13 O2 Del Method Room Air 03/04/23 14:30 Pain score (VAS): 4 I/O: Intake & Output 03/04/23 03/05/23 03/05/23 23:59 07:59 15:59 Intake Total 980 1000 Output Total 1700 300 Balance -720 700 Post-procedural complaints: none Patient feedback: Patient not satisfied with anesthetic care, states experienced a lot of pain during later portion of procedure. while chart does indicate patient received morphone for pain, pt insists she was not made to feel comfortable and was repeatedly told she could not have more pain meds due to hypotension..
--- NOTE | 2023-03-05 13:04 | WPDANLDNPN2 ---
Anes-Prog Note L&D-Neuraxial Date/Time: 03/05/23 13:04 Neuraxial medications: intrathecal PF morphine Opiod-related complaints: none Patient feedback: Patient satisfied with post-operative pain management.
--- NOTE | 2023-03-05 13:05 | WPDANLDPN2 ---
Anes-Prog Note L&D Date/Time: 03/05/23 13:05 Comfortable throughout: section Neuraxial method: spinal Epidural/Spinal procedure site: clean & non-tender Neuro status: Neuro function grossly intact. Cardiovascular status: normal Respiratory status: normal Airway patency: baseline Mental status: baseline Post-Op hydration status: normal Vital Signs: Last Vital Signs Temp 97.8 F 03/05/23 09:13 Pulse 99 03/05/23 09:13 Resp 18 03/05/23 09:13 BP 101/49 L 03/05/23 09:13 Pulse Ox 99 03/05/23 09:13 O2 Del Method Room Air 03/04/23 14:30 Pain score (VAS): 3 I/O: Intake & Output 03/04/23 03/05/23 03/05/23 23:59 07:59 15:59 Intake Total 980 1000 Output Total 1700 300 Balance -720 700 Post-procedural complaints: none Patient feedback: Patient satisfied with anesthetic care.
--- NOTE | 2023-03-05 17:17 | PC.NURSE ---
1057 Introductions were made, then consulted with patient to assess needs related to . Mother led the conversation with her?plans to feed?her and the?experience so far. Encouraged understanding of the benefits of skin to skin (demonstrating unwrapping infant and placing upright on her chest), stimulating with massage touch, changing positions to encourage wakefulness, how to watch for early feeding cues, responsive feeding, feeding on demand (aiming for 8-12 times in 24 hours, about every 2-3 hours), milk production, building/maintaining a milk supply, duration of feeding, signs of adequate intake/output and how to record on the feeding sheet. Mother works well with her with encouragement and education. Reviewed positioning and ear, shoulder, hip alignment, supporting the breast to facilitate a deep latch, asymmetrical latch (off-center), leading with the chin with a big, open, wide gape and body close to mother. Reviewed comfort measures of healing with a warm, wet washcloth to rinse breast, then leave open to air-dry, good handwashing when or touching the breast/nipples to prevent infection. Mother voiced understanding of skin to skin, stimulating with massage touch, responsive feedings, hand expressed colostrum, talking to to encourage if it has been 2 -2.5 hours since the start of the last , to call if does not latch, or if there is discomfort with . Baby sleepy and refusing to eat by breast. Formula supplementation given and baby allowed to sleep until next feeding. Mother will call when attempts to breastfeed baby in 2-3 hours. Resources used for education were facilitated with the mom and baby guide, Inpatient/outpatient resources provided with business card, feeding sheet, name written on the communication board, and the mom/baby guide. Parents voiced understanding of information, demonstrated learning and will call if there is a request for assistance. Reported to the Primary RN.
--- NOTE | 2023-03-05 17:24 | PC.NURSE ---
1500 Mother is able to independently latch infant with appropriate positioning and alignment. She denies any nipple discomfort and is responsively . Infant is responsive, able to maintain latch and currently meeting outcomes for weight, output, jaundice, blood sugar and feeding frequencies of 8-12 times in 24 hours. Mother declines any additional assistance or education at this time. Mother is encouraged to call for assistance if her doesn?t latch, pain with latching, questions or concerns. Mother voiced understanding of information shared along with the mom/baby guide for an additional resource. Reported to the Primary RN.
[2023-03-05 19:30] VITALS: BP 100/50; PULSE 63; RESP 18; TEMP 36.8; O2SAT 97
[2023-03-06] MEDS: IBUPROFEN 600 MG TABLET PO ×4 (00:20→22:30)
[2023-03-06] MEDS: HYDROcodone/acetaminophen (*CRX) 5-325 MG TABLET 1 TAB PO ×5 (03:59→22:30)
--- NOTE | 2023-03-06 07:30 | PC.NURSE ---
PT and fob both recipients of instructions and no barriers to learning identified at this time. PT introductions made and plan of care discussed per post op c section, pain management, breast feeding, daily care activities. PT received such instructions via one to one discussion, mom baby care guide and demonstrations this shift. Oriented to unit, room, information board, rooming in, and security measures. Patient verbalizes understanding.
[2023-03-06] MEDS: DOCUSATE SODIUM 100 MG CAPSULE PO ×2 (08:11→18:05)
[2023-03-06] MEDS: MULTIVIT/MIN/PREN/FOL AC/IRON TABLET 1 TAB PO (08:11)
[2023-03-06] MEDS: SIMETHICONE 80 MG TAB.CHEW PO ×4 (08:12→18:05)
[2023-03-06] MEDS: POLYSACCHARIDE IRON COMPLEX 150 MG CAPSULE PO ×2 (08:12→18:06)
[2023-03-06 08:15] VITALS: PULSE 84; RESP 18; O2SAT 97
[2023-03-06 08:35] VITALS: BP 109/59; PULSE 84; RESP 18; TEMP 36.8; O2SAT 97
--- NOTE | 2023-03-06 10:07 | PM.OBPNVD ---
OB - PN: Subj Subjective Date/time seen: 03/06/23 10:07 Narrative: Pain OK. Tolerating diet. OB - PN: Obj Data Labs 03/05/23 05:48 OB - PN A/P Plan day: 2 Comments: A: POD#2, doing well. P: Routine care. Exam Narrative: AVSS I/O OK ABD soft, nontender, fundus firm. Incision c/d/i. EXT nontender
[2023-03-06] MEDS: HYDROcodone/acetaminophen (*CRX) 10-325 MG TABLET 1 TAB PO (18:05)
[2023-03-06] MEDS: TETANUS,DIPHTHERIA,AC PERTUSSIS ADULT (0.5 ML) BOOSTRIX IM (18:07)
[2023-03-06 20:00] VITALS: BP 103/74; PULSE 84; RESP 18; TEMP 37; O2SAT 99
[2023-03-07] MEDS: HYDROcodone/acetaminophen (*CRX) 10-325 MG TABLET 1 TAB PO (03:26)
[2023-03-07] MEDS: HYDROcodone/acetaminophen (*CRX) 5-325 MG TABLET 1 TAB PO ×5 (06:27→20:52)
[2023-03-07] MEDS: IBUPROFEN 600 MG TABLET PO ×3 (06:27→20:52)
--- NOTE | 2023-03-07 06:35 | PC.NURSE ---
Pt introductions made and plan of care discussed per post , post op c section, pain management, breast feeding, daily care activities. PT sole recipient of such instructions and no barrier identified at this time. PT given instructions per one to one discussion, mom baby care guide and demonstrations this shift. PT verbalized understanding of such care.
--- NOTE | 2023-03-07 08:21 | PM.OBPNVD ---
OB - PN: Subj Subjective Date/time seen: 03/07/23 08:21 Narrative: Pain OK. Tolerating diet. Would like to go home. OB - PN: Obj Data Labs 03/05/23 05:48 OB - PN A/P Plan Comments: A: POD#3, doing well. P: Home to f/u 4 weeks. Exam Narrative: AVSS ABD soft, nontender, fundus firm. Incision c/d/i. EXT nontender
[2023-03-07] MEDS: SIMETHICONE 80 MG TAB.CHEW PO ×2 (10:25→14:30)
[2023-03-07] MEDS: POLYSACCHARIDE IRON COMPLEX 150 MG CAPSULE PO ×2 (10:26→17:24)
[2023-03-07] MEDS: MULTIVIT/MIN/PREN/FOL AC/IRON TABLET 1 TAB PO (10:26)
[2023-03-07] MEDS: DOCUSATE SODIUM 100 MG CAPSULE PO ×2 (10:26→17:24)
[2023-03-07 10:30] VITALS: BP 110/64; PULSE 96; RESP 16; TEMP 36.7; O2SAT 97
[2023-03-07] MEDS: LIDOCAINE 5% PATCH 1 PATCH TRANSDERM (10:30)
[2023-03-07 21:56] VITALS: BP 115/67; PULSE 97; RESP 16; TEMP 36.5; O2SAT 99
[2023-03-08] MEDS: HYDROcodone/acetaminophen (*CRX) 10-325 MG TABLET 1 TAB PO (01:18)
[2023-03-08] MEDS: HYDROcodone/acetaminophen (*CRX) 5-325 MG TABLET 1 TAB PO ×3 (05:36→16:54)
[2023-03-08] MEDS: IBUPROFEN 600 MG TABLET PO ×2 (05:36→12:58)
[2023-03-08] MEDS: POLYSACCHARIDE IRON COMPLEX 150 MG CAPSULE PO ×2 (07:57→16:54)
[2023-03-08] MEDS: DOCUSATE SODIUM 100 MG CAPSULE PO ×2 (07:58→16:54)
[2023-03-08 08:15] VITALS: BP 110/67; PULSE 93; RESP 16; TEMP 36.9; O2SAT 100
[2023-03-08] MEDS: MULTIVIT/MIN/PREN/FOL AC/IRON TABLET 1 TAB PO (12:57)
[2023-03-08] MEDS: LIDOCAINE 5% PATCH 1 PATCH TRANSDERM (13:02)
--- NOTE | 2023-03-08 13:53 | PC.NURSE ---
1230 Entered the room and mother was pumping; noted 30 ml breast milk. Mother verbalizes she is able to independently latch infant with appropriate positioning and alignment. She denies any nipple discomfort and is responsively . Infant is currently meeting outcomes for weight, output, jaundice, blood sugar and feeding frequencies of 8-12 times in 24 hours. Instructed parents to feed baby frequently and regarding how to properly utilize light to prevent issues with baby related to jaundice. Mother declines any additional assistance or education at this time. Mother is encouraged to call for assistance if her infant doesn?t latch, pain with latching, questions or concerns. Mother voiced understanding of information shared along with the mom/baby guide for an additional resource. Reported to the Primary RN.
[2023-03-10 14:21] VITALS: BP 124/60; PULSE 88; RESP 18; TEMP 36.9; O2SAT 100
== END 2023-03-08 17:48 | disposition home or self-care (01) | DRG 786 ==
LOC: ANHOBOP 08:21 → ANHLDR 09:44 → ANHOB2 03-05 08:29 → ANHLDR 03-09 12:18 → ANHOB2 03-09 12:18
PROVIDERS: Admitting Provider Obstetrics & Gynecology; Visit Provider Obstetrics & Gynecology
PROC: 10D00Z1 Extraction of Products of Conception, Low, Open Approach (ICD-10-PCS; CPT 59514; principal; 2023-03-04 11:00)
DX: O42.013 Preterm premature rupture of membranes, onset of labor within 24 hours of rupture, third trimester (principal); O60.14X0 Preterm labor third trimester with preterm delivery third trimester, not applicable or unspecified; Z37.0 Single live birth; Z3A.35 35 weeks gestation of pregnancy; O34.211 Maternal care for low transverse scar from previous cesarean delivery; Z23 Encounter for immunization
CPT/HCPCS: 36415; 84112; 85025; 86592; 86850; 86900; 86901; 90471; 90686; 90715; A9270; G0008; J0690; J1885; J2274; J2590; J3010; J7120